=== PATIENT | female | born 1950 | race Caucasian/White ===

== ENCOUNTER 2024-12-11 15:58 | Emergency (ER) | payer MEDICARE, MEDICAID, SELFPAY ==
[2024-12-11 15:59] VITALS: BP 131/87; PULSE 69; RESP 18; TEMP 36.9; O2SAT 99
[2024-12-11 16:09] VITALS: PULSE 78; RESP 18; O2SAT 98
[2024-12-11 16:18] VITALS: BMI 23.3
--- NOTE | 2024-12-11 16:26 | XR_ITS ---
Examination: CT brain head without contrast. 2-D sagittal coronal reconstructions Date and time of exam:December 11, 2024, 1639 hours INDICATIONS: Patient fell today with image of the head, head pain CTDI: vol (mGy):46.8 DLP: (mGycm):908 Technique: Multiple CT axial sections of the brain have been obtained, 5 mm slice thickness. Contrast has not been administered. 2-D sagittal, coronal reconstructions have been obtained Low dose protocols were performed. One or more of the following dose reduction techniques were used; automated exposure control, adjustment of the mA and/or KV according to patient size, use of iterative reconstruction technique. Findings: No significant ventricular enlargement. Intra-axial or extra-axial hemorrhage density is not seen. No mass effect or midline shift Basal cisterns are not remarkable. Fourth ventricle is midline. Cranial vault intact. Impression: Negative for acute hemorrhage, mass effect or midline shift
--- NOTE | 2024-12-11 16:26 | XR_ITS ---
Examination: CT cervical spine without contrast 2-D sagittal reconstructions 2-D coronal reconstructions 3-D reconstructions. Exam date and time:December 11, 2024, 1639 hours INDICATIONS: Patient fell today with injury to the head, head pain CTDI:vol (mGy) 8.36 DLP: (mGycm) 154 Technique: Multiple 2 mm axial sections of the cervical spine have been obtained. The coronal and sagittal reconstructions have been obtained. 3-D reconstructions have been obtained. Low dose protocols were performed. One or more of the following dose reduction techniques were used; automated exposure control, adjustment of the mA and/or KV according to patient size, use of iterative reconstruction technique. Findings: Axial sections demonstrate intact base of the skull. C1 exhibit satisfactory relationship to the odontoid. No acute cervical vertebral body fracture seen. Alignment posterior spinous processes satisfactory. Impression: No acute cervical fracture.
[2024-12-11] MEDS: LIDOCAINE HCL 1% 20 ML VIAL 10 ML INFL (17:05)
[2024-12-11 17:16] LABS: Basophils # (Auto) 0.0 Thou/mm3 (0.0-0.2); Basophils % (Auto) 0 % (0-2.5); Eosinophils # (Auto) 0.6 Thou/mm3 (0.0-0.5); Eosinophils % (Auto) 11 % (0-10); Hematocrit 36.2 % (36.0-46.0); Hemoglobin 11.8 g/dL (12.0-16.0); Immature Granulocytes Auto 0.02 Thou/mm3 (0.00-0.00); Lymphocytes # (Auto) 1.0 Thou/mm3 (1.0-4.8); Lymphocytes % (Auto) 19 % (10-50); Mean Corpuscular HGB Conc 32.6 g/dl (31.0-37.0); Mean Corpuscular Hemoglobin 30.4 pg (25.0-35.0); Mean Corpuscular Volume 93 fL (80-100); Monocytes # (Auto) 0.6 Thou/mm3 (0.0-0.8); Monocytes % (Auto) 11 % (0-12); Neutrophils # (Auto) 3.2 Thou/mm3 (1.8-7.7); Neutrophils % (Auto) 59 % (37-80); Nucleated Red Blood Cell # 0.00 Thou/mm3 (0.00-0.00); Nucleated Red Blood Cell % 0 /100 WBC (0); Platelet Count 191 Thou/mm3 (140-440); RDW Standard Deviation 47.6 fL (36.4-46.3); Red Blood Count 3.88 Miln/mm3 (4.00-5.20); White Blood Count 5.5 Thou/mm3 (3.6-11.0)
[2024-12-11 17:34] LABS: Alanine Aminotransferase 20 U/L (10-49); Albumin, Serum 3.8 gm/dL (3.4-4.8); Albumin/Globulin Ratio 1.5 (1.2-2.2); Alkaline Phosphatase 132 U/L (46-116); Anion Gap 9 (7-16); Aspartate Amino Transferase 22 U/L (0-34); BUN/Creatinine Ratio 34 Ratio (12-20); Bilirubin,Total 0.4 mg/dL (0.3-1.2); Blood Urea Nitrogen 24 mg/dL (9-23); Calcium 9.2 mg/dL (8.3-10.6); Calcium (Corrected) 9.4 mg/dL (8.5-10.1); Carbon Dioxide 29.3 mMol/L (20.0-31.0); Chloride 107 mMol/L (98-107); Creatinine (Component) 0.7 mg/dL (0.6-1.3); Estimated Creatinine Clearance 58.3 mL/min (>60); Globulin 2.6 gm/dL (2.3-3.5); Glucose 99 mg/dL (74-106); Osmolality,Calculated 292 (275-295); Potassium 5.0 mMol/L (3.4-5.1); Sodium 145 mMol/L (136-145); Total Protein 6.4 gm/dL (5.7-8.2); eGFR > 60 See Note
[2024-12-11 18:08] VITALS: BP 174/98; PULSE 78; RESP 18; TEMP 36.6; O2SAT 98
[2024-12-11 18:21] LABS: Collection Type, Urine Voided; RBC,Urine 0 /hpf (0-3); WBC,Urine 0 /hpf (0-5)
--- NOTE | 2024-12-11 18:35 | PD.EDFALL ---
ED Fall Injury RME/HPI General Chief Complaint: Fall Stated Complaint: FALL Time Seen by Provider: 12/11/24 16:13 Source: patient and EMS Arrival date/time: 12/11/24 15:58 Limitations: no limitations RME / HPI RME / HPI Narrative: 74-year-old female who lives in a long care facility is here today frequent falls. She reportedly had another fall today and suffered a laceration lateral to her left neck. Patient has a history of dementia and the history is limited. Related Data Allergies Allergy/AdvReac Type Severity Reaction Status Date / Time cashew nut Allergy Verified 12/11/24 16:20 Iodinated Contrast Media Allergy Verified 12/11/24 16:20 iodine Allergy Verified 12/11/24 16:20 pecan nut Allergy Verified 12/11/24 16:20 shellfish derived Allergy Verified 12/11/24 16:20 Review of Systems Review of Systems Systems Reviewed: All systems reviewed, normal except as documented ED Exam General Limitations: Present no limitations General appearance: Present alert and in no apparent distress Head Head exam: Present other (No scalp depression. No hematotympanum. There is a 2 cm, jagged laceration, lateral to the left eye.) Eye Eye exam: Present normal appearance, PERRL and EOMI ENT ENT exam: Present normal exam, normal oropharynx and mucous membranes moist Neck Neck exam: Present normal inspection, full ROM and trachea midline Chest Chest inspection: Present normal inspection and symmetric chest wall rise Respiratory Respiratory exam: Present normal lung sounds bilaterally Cardiovascular Cardiovascular exam: Present regular rate, normal rhythm and normal heart sounds Abdominal Exam Abdominal exam: Present soft and normal bowel sounds Extremities Exam Extremities exam: Present normal inspection and full ROM Back Exam Back exam: Present normal inspection and full ROM Neurological Exam Neurological exam: Present alert, oriented X3 and CN II-XII intact Psychiatric Psychiatric exam: Present normal affect and normal mood Skin Skin exam: Present warm, dry, intact and normal color Course Quality Measures none Orders Category Date Time Status In and Out Catheter X1 Care 12/11/24 18:[address] cervical spine wo con Stat Exams 12/11/24 16:[address] head/brain wo con Stat Exams 12/11/24 16:26 Completed CBC Stat Lab 12/11/24 17:07 Completed CMP [Comprehensive Metabolic Panel] Stat Lab 12/11/24 17:07 Completed UA, C/S IF [Urinalysis, C/S if Indicated] Stat Lab 12/11/24 17:55 Completed Urine Culture Stat Lab 12/11/24 17:55 Received Lidocaine 1% 20 ml [Xylocaine 1% 20 ML] Med 12/11/24 16:28 Discontinued 10 ml INFL X1 ONE Vital Signs Vital signs: Vital Signs Temperature 98.4 F 12/11/24 15:59 Pulse Rate 69 12/11/24 15:59 Respiratory Rate 18 12/11/24 15:59 Blood Pressure 131/87 H 12/11/24 15:59 Pulse Oximetry (%) 99 12/11/24 15:59 Oxygen Delivery Method Room Air 12/11/24 15:59 PROCEDURES: Procedure Comment What is of infiltrated 1% lidocaine. Wound was approximated with 3, 6?0, simple erupted nylon sutures. Procedure was tolerated well without immediate complication. Fall MDM Narrative MDM Narrative:: 74-year-old female who lives in a long care facility is here today frequent falls. She reportedly had another fall today and suffered a laceration lateral to her left neck. Patient has a history of dementia and the history is limited. Workup including CT scan of the head and neck is unremarkable. Wound was repaired by primary tension. Patient is to have her sutures removed in 5 days pending recheck. Return at anytime for any worsening or emergent changes. Patient data External records reviewed:: None Clinical information provided by:: patient and EMS Social determinants that could affect healthcare access:: none Patient has the following chronic illnesses:: Dementia How is presenting disease/condition affected by chronic disease/condition?: exacerbated by Evaluation data The following diagnostics were reviewed and interpreted by me:: radiology exam(s) (CT of the head and neck are unremarkable for any acute osseous injury or intercranial process) Lab and/or radiology exams considered but not ordered:: n/a Interpretation Summary: Negative workup Medications / Prescriptions Medications or Prescriptions considered but not ordered:: n/a Medication administrations:: Medication Administration History Discontinued Medications Lidocaine HCl (Lidocaine Hcl 1% 20 Ml Vial) 10 ml INFL X1 ONE Stop: 12/11/24 16:29 Last Admin: 12/11/24 17:05 Dose: 10 ml Documented By: ANAID Comments: given to provider See above Consultations Consultation(s) initiated? (list below): No Diagnosis Fall Differential Diagnosis: syncope, concussion with loss of consciousness and concussion without loss of consciousness Most likely diagnosis given after review of the tests above:: Facial laceration Admission Indicated Admission indicated?: not indicated Admission Request Was there a request for admission?: No Disposition Plan Disposition Plan: Discharge Discharge Attestation Discharge Attestation: The patient and all family members were given an opportunity to ask questions and understood the discharge instructions. Discharge instructions specifically effects, indications for sooner follow up or return to the emergency department, and the expected course of current diagnosis. Patient condition: Stable Discharge Plan Plan Patient Disposition: HOME (Self Care) Patient condition on transfer: Stable Prescriptions/Referrals Referrals: Michael Wadsworth MD [Primary Care Provider] - In 1 week Problem List Clinical Impression: Facial laceration Patient/Caregiver Discharge Instructions Education Materials: ED Laceration, Chin, Suture or Tape Additional Instructions: - Continue wound care. - Have the wound evaluated in 5 days and consider suture removal. - Return as needed for any worsening or emergent changes. Print Language: Slovenian Stand Alone Forms: Debbie Award Info., Patient Portal Info Letter
--- NOTE | 2024-12-11 18:37 | EDNOTE_ITS ---
ED Fall Injury RME/HPI General Chief Complaint: Fall Stated Complaint: FALL Time Seen by Provider: 12/11/24 16:13 Source: patient and EMS Arrival date/time: 12/11/24 15:58 Mode of arrival: EMS Limitations: other (Dementia) RME / HPI RME / HPI Narrative: Patient is a 74-year-old female who is brought in by EMS for a laceration just lateral to her left eye. She had a ground-level, mechanical fall and suffer this. Patient is currently in a SNF and has frequent falls. She has a history of hypertension, depression, osteoarthritis, seizure disorder, and psychotic disorder with hallucinations. She is a DNR. Patient does not provide any history. Related Data Allergies Allergy/AdvReac Type Severity Reaction Status Date / Time cashew nut Allergy Verified 12/11/24 16:20 Iodinated Contrast Media Allergy Verified 12/11/24 16:20 iodine Allergy Verified 12/11/24 16:20 pecan nut Allergy Verified 12/11/24 16:20 shellfish derived Allergy Verified 12/11/24 16:20 Review of Systems Review of Systems Systems Reviewed: All systems reviewed, normal except as documented ED Exam General Limitations: Present other (Dementia) General appearance: Present alert and in no apparent distress Head Head exam: Present atraumatic Eye Eye exam: Present normal appearance, PERRL and EOMI ENT ENT exam: Present normal exam, normal oropharynx and mucous membranes moist Neck Neck exam: Present normal inspection, full ROM and trachea midline Chest Chest inspection: Present normal inspection and symmetric chest wall rise Respiratory Respiratory exam: Present normal lung sounds bilaterally Cardiovascular Cardiovascular exam: Present regular rate, normal rhythm and normal heart sounds Abdominal Exam Abdominal exam: Present soft and normal bowel sounds Extremities Exam Extremities exam: Present normal inspection and full ROM Back Exam Back exam: Present normal inspection and full ROM Neurological Exam Neurological exam: Present alert and oriented X3 Psychiatric Psychiatric exam: Present other (Patient answer some questions. She also has random conversations regarding in people and places) Skin Skin exam: Present warm, dry, normal color and other (3.5 cm, semijagged, laceration lateral to the left thigh.) Course Quality Measures none Orders Category Date Time Status In and Out Catheter X1 Care 12/11/24 18:[address] cervical spine wo con Stat Exams 12/11/24 16:[address] head/brain wo con Stat Exams 12/11/24 16:26 Completed CBC Stat Lab 12/11/24 17:07 Completed CMP [Comprehensive Metabolic Panel] Stat Lab 12/11/24 17:07 Completed UA, C/S IF [Urinalysis, C/S if Indicated] Stat Lab 12/11/24 17:55 Received Lidocaine 1% 20 ml [Xylocaine 1% 20 ML] Med 12/11/24 16:28 Discontinued 10 ml INFL X1 ONE Vital Signs Vital signs: Vital Signs Temperature 98.4 F 12/11/24 15:59 Pulse Rate 69 12/11/24 15:59 Respiratory Rate 18 12/11/24 15:59 Blood Pressure 131/87 H 12/11/24 15:59 Pulse Oximetry (%) 99 12/11/24 15:59 Oxygen Delivery Method Room Air 12/11/24 15:59 PROCEDURES: Procedure Comment Laceration was infiltrated 1% lidocaine. Wound was approximated with #5, 6?0, simple erupted nylon sutures. Procedures Toller well without any immediate complication. Fall MDM Narrative MDM Narrative:: Patient is a 74-year-old female who is brought in by EMS for a laceration just lateral to her left eye. She had a ground-level, mechanical fall and suffer this. Patient is currently in a SNF and has frequent falls. She has a history of hypertension, depression, osteoarthritis, seizure disorder, and psychotic disorder with hallucinations. She is a DNR. Patient does not provide any history. On exam, patient is nontoxic-appearing. She has no scalp depression. She has a laceration lateral to her left eye. Pupils are symmetrical. She makes good eye contact. CT of the head and neck were obtained and are unremarkable. Laceration was pared via primary intention. She will be discharged back to her SNF. She may return as needed for worsening emergent changes. Patient data External records reviewed:: Shelter records Clinical information provided by:: patient and EMS Social determinants that could affect healthcare access:: none Patient has the following chronic illnesses:: Hypertension, seizure, depression, psychotic disorder How is presenting disease/condition affected by chronic disease/condition?: exacerbated by Evaluation data The following diagnostics were reviewed and interpreted by me:: radiology exam(s) (CT of the head and neck) Lab and/or radiology exams considered but not ordered:: n/a Interpretation Summary: CT of the head and neck are unremarkable. Medications / Prescriptions Medications or Prescriptions considered but not ordered:: n/a Medication administrations:: Medication Administration History Discontinued Medications Lidocaine HCl (Lidocaine Hcl 1% 20 Ml Vial) 10 ml INFL X1 ONE Stop: 12/11/24 16:29 Last Admin: 12/11/24 17:05 Dose: 10 ml Documented By: ANAID Comments: given to provider See above Consultations Consultation(s) initiated? (list below): No Diagnosis Fall Differential Diagnosis: syncope, compression fracture and concussion with loss of consciousness Most likely diagnosis given after review of the tests above:: Facial laceration Admission Indicated Admission indicated?: not indicated Admission Request Was there a request for admission?: No Disposition Plan Disposition Plan: Discharge Discharge Attestation Discharge Attestation: The patient and all family members were given an opportunity to ask questions and understood the discharge instructions. Discharge instructions specifically effects, indications for sooner follow up or return to the emergency department, and the expected course of current diagnosis. Patient condition: Stable Discharge Plan Plan Patient Disposition: HOME (Self Care) Patient condition on transfer: Stable Prescriptions/Referrals Referrals: Michael Wadsworth MD [Primary Care Provider] - In 1 week Problem List Clinical Impression: Facial laceration Patient/Caregiver Discharge Instructions Education Materials: ED Laceration, Chin, Suture or Tape Additional Instructions: - Continue wound care. - Have the wound evaluated in 5 days and consider suture removal. - Return as needed for any worsening or emergent changes. Print Language: Luxembourgish Stand Alone Forms: Debbie Award Info., Patient Portal Info Letter
[2024-12-11 18:41] LABS: Bilirubin,Urine Negative (Negative); Blood,Urine Negative (Negative); Clarity,Urine Turbid (Clear/Hazy); Color,Urine Lt-Yellow (Lt Yel-Yel); Glucose, Urine Negative (Negative); Ketones,Urine Negative (Negative); Leukocyte Esterase,Urine Negative (Negative); Nitrite,Urine Positive (Negative); PH,Urine 6.0 (5.0-7.0); Protein,Urine Negative (Neg - Trace); Specific Gravity,Urine 1.027 (1.001-1.035); Squamous Epithelial Cell,Urine < 1 /hpf (0-5); Urobilinogen,Urine Negative mg/dL (0.0-1.0)
[2024-12-11 18:42] LABS: Culture Indicated,Urine Yes
[2024-12-11 21:49] VITALS: BP 154/91; PULSE 78; RESP 18; TEMP 36.6; O2SAT 97
--- NOTE | 2024-12-11 22:06 | PC.NURSE ---
Spoke to Aundrea and gave report, informed her pt is on her way via ems.
== END 2024-12-11 22:34 | disposition home or self-care (01) ==
PROVIDERS: Physician Assistant Medical; Emergency Provider Emergency Medicine; PCP Hospitalist
DX: S01.81XA Laceration without foreign body of other part of head, initial encounter (principal); W19.XXXA Unspecified fall, initial encounter; R29.6 Repeated falls; Z66 Do not resuscitate
CPT/HCPCS: 12013; 51701; 36415; 70450; 72125; 80053; 81001; 85025; 87077; 87086; 87186; 99283; J3490